=== PATIENT | female | born 1960 | race Caucasian/White ===

== ENCOUNTER 2021-10-31 13:29 | Outpatient (CLI) | payer OTHER, SELFPAY ==
[2021-10-31 14:03] LABS: SARS-CoV-2 Ag Negative (Negative)
[2021-10-31 15:07] LABS: SARS-CoV-2 RNA PCR Negative (Negative)
== END 2021-10-31 13:30 | disposition home or self-care (01) ==
LOC: CHSLAB 13:33
PROVIDERS: PCP Family Medicine; Visit Provider Family Medicine
DX: Z20.822 Contact with and (suspected) exposure to COVID-19 (principal)
CPT/HCPCS: 87426; C9803; U0003; U0005

== ENCOUNTER 2024-04-19 08:36 | Outpatient (RCR) | payer MEDICARE, SELFPAY ==
--- NOTE | 2024-04-19 09:54 | OPREHPOC ---
Outpatient Therapy Plan of Care This is a Multidisciplinary Plan of Care that may contain components documented by all disciplines (PT, OT, and ST.) PT Problem 1 PT Problem #1 Knowledge Deficit PT Goal 1 Goal 1. independent and compliant with HEP Target Visit 5 PT Problem 2 PT Problem #2 Pain PT Goal 1 Goal 1. decrease pain at worst to 2/10 or less in the R shoulder Target Visit 9 PT Problem 3 PT Problem #3 Impaired Range of Motion PT Goal 1 Goal 1. active R shoulder flexion to 165 degrees or better 2. active R shoulder IR to 70 degrees or better 3. all active rom of the R shoulder to be less than 2/10 pain at end range. Target Visit 9 PT Problem 4 PT Problem #4 Impaired Strength PT Goal 1 Goal 1. 4+/5 or better R shoulder strength overall PT Problem 5 PT Problem #5 Impaired Functional Mobil PT Goal 1 Goal 1. quick dash to display less than 20% functional deficits 2. patient to lift 5lb overhead with the R arm x10 reps without more than 2/10 pain 3. patient to return to gardening 4. patient to report being able to get dressed pain free Target Visit 9
--- NOTE | 2024-04-19 09:54 | PTOPEVAL1 ---
Assessment and note entered by JT File, PT Evaluation Information Assessment Status Evaluation Diagnosis R shoulder pain, bursitis Onset 04/06/24 Subjective Information patient reports she injured the R shoulder years ago working a car seat for her grand daughter. she has had several injections in the past. until the most recent time, her last injection was back in 2011. she reports just a few months ago her shoulder pain flared up. she had an injection a couple weeks ago, but has had no relief of her pain and symptoms. she reports she does not recall doing anything that caused her pain to flare up. she reports she has increased pain and symptoms with lifting the R arm, reaching behind her back, and lifting overhead. she reports she has difficulty trying to get to sleep. she reports she did have an xray of the R shoulder but no significant results. she has not had an MRI yet. she reports the pain is located along the front of the shoulder, back of the shoulder, and down the side of the arm along the shoulder. Reported Pain Level Pain Score 2: Self Report Assessment PT Clinical Summary mrs. combs is a 64 yo woman who presents to skilled PT services for evaluation and treatment of R shoulder pain. she can recall no recent, but an acute on chronic flare up of pain in the R shoulder. her symptoms are related to movement/use of the R shoulder, specifically reaching to end rom and lifting/resistance activities. she presents positive for impingement and rotator cuff special testing of the R shoulder. she also has popping/clunking in the shoulder with movement/ testing. she likely has a rotator cuff arthropathy /tendonitis leading to impingement of the R shoulder. continued skilled PT is indicated to improve her objective/functional deficits and progress towards a return to her prior level functional activity performance/quality of life. Plan of Care Interventions Electrical Stimulation,Hot Pack/Cold Pack,Manual Therapy,Neuro Re-education,Patient/Caregiver Educati,Therapeutic Activities,Therapeutic Exercise PT Services Indicated Yes Treatment Frequency and 3x weekly for 9 visits Duration These treatments will address the objective and functional deficits as defined above. The patient will be advanced safely and appropriately in order for the patient to p
--- NOTE | 2024-05-06 14:11 | PTOPREEVAL ---
Assessment and note entered by JT File, PT Evaluation Information Assessment Status Re-evaluation Diagnosis R shoulder pain, bursitis Onset 04/06/24 Subjective Information she reports she continues to have pain in the R shoulder. she reports the pain is not the same intensity all the time, and gets worse with certain movements/directions. she reports rolling over in bed will still have pain, reaching behind her head and back, and performing raises to her side. Reported Pain Level Pain Score 5: Self Report Assessment PT Clinical Summary mrs. combs presents to skilled PT for her 9th skilled PT visit. she presents with continued pain in the R shoulder, especially with reaching behind back, and lifting activities. she displays slight improvements in rom and strength of the R shoulder, but continues to have unmet goals for skilled PT. partial progress is noted towards nearly all goals, but patient would benefit from continued skilled PT to work on continued objective/functional deficits and return to her prior level functional activity performance/ quality of life. Plan of Care Interventions Electrical Stimulation,Hot Pack/Cold Pack,Manual Therapy,Neuro Re-education,Patient/Caregiver Educati,Therapeutic Activities,Therapeutic Exercise,Other Other Interventions dry needling PT Services Indicated Yes Treatment Frequency and continue skilled PT 2x weekly for 6 more visits Duration These treatments will address the objective and functional deficits as defined above. The patient will be advanced safely and appropriately in order for the patient to progress towards his/her prior level of function. Additional exercises will be introduced and as well as a comprehensive home exercise program upon discharge, if needed, ?to ensure carryover of functional gains achieved in the clinic. This treatment plan has been reviewed and agreement upon by the patient.
--- NOTE | 2024-05-31 09:52 | OPREHPOC ---
Outpatient Therapy Plan of Care This is a Multidisciplinary Plan of Care that may contain components documented by all disciplines (PT, OT, and ST.) PT Problem 1 PT Problem #1 Knowledge Deficit PT Goal 1 Goal 1. independent and compliant with HEP Target Visit 5 Progress Met PT Problem 2 PT Problem #2 Pain PT Goal 1 Goal 1. decrease pain at worst to 2/10 or less in the R shoulder Target Visit 15 Progress Not Met Comment continue PT Problem 3 PT Problem #3 Impaired Range of Motion PT Goal 1 Goal 1. active R shoulder flexion to 165 degrees or better. met 2. active R shoulder IR to 70 degrees or better. met 3. all active rom of the R shoulder to be less than 2/10 pain at end range. not met Target Visit 15 Progress Partially Met PT Problem 4 PT Problem #4 Impaired Strength PT Goal 1 Goal 1. 4+/5 or better R shoulder strength overall Target Visit 15 Progress Not Met PT Problem 5 PT Problem #5 Impaired Functional Mobil PT Goal 1 Goal 1. quick dash to display less than 20% functional deficits. not met 2. patient to lift 5lb overhead with the R arm x10 reps without more than 2/10 pain (competes reps, but more pain) 3. patient to return to gardening. not met 4. patient to report being able to get dressed pain free. not met Target Visit 15 Progress Not Met Comment continue
--- NOTE | 2024-05-31 09:55 | PTOPDC ---
Assessment and note entered by JT File, PT Evaluation Information Assessment Status Discharge Diagnosis R shoulder pain, bursitis Onset 04/06/24 Subjective Information patient reports she feels Alright today. she reports she feels better along the front of the R shoulder, but still has the same pain along the back of the shoulder. she reports she has not yet made a follow up with her referring provider. she reports it is getting frustrating. Reported Pain Level Pain Score 3: Self Report Assessment PT Clinical Summary mrs. combs presents to skilled PT services for her 15th skilled therapy visit. she reports continued pain in the posterior R shoulder. she is limited in functional reaching behind her back, and weak still throughout the R shoulder. she has met goal for HEP performance, and partially met goals for ROM. however, all other goals remain un met mostly due to pain. she will DC skilled PT at this time and follow up with MD for further testing and potentially another injection to the R shoulder. Plan of Care PT Services Indicated Yes
== END 2024-05-31 09:00 | disposition home or self-care (01) ==
LOC: CHSPT 08:36
DX: M75.51 Bursitis of right shoulder (principal)
CPT/HCPCS: 97014; 97110; 97140; 97161; G0283

== ENCOUNTER 2024-06-23 09:11 | Outpatient (CLI) | payer MEDICARE, SELFPAY ==
--- NOTE | ~2024-06-23 | MR_ITS ---
EXAMINATION: MR shoulder RT wo con DATE: 06/23/2024 10:07 INDICATION: Right shoulder pain. TECHNIQUE: Magnetic resonance imaging (MRI) of the right shoulder was performed without intravenous c ontrast. Sequences included axial PD-weighted FS FSE, coronal oblique PD-weighted FS FSE and T2-weigh saurav FS FSE, and sagittal oblique T2-weighted FS FSE and T1-weighted FSE. COMPARISON: None. FINDINGS: Coracoacromial arch: The acromion undersurface is curved in morphology (type II). There is a subacromial spur. There is mi ld acromioclavicular joint osteoarthritis. There is moderate subacromial/subdeltoid bursitis. Rotator cuff: There is a full-thickness tear of supraspinatus and infraspinatus tendons measuring 2.0 cm anterior t o posterior by 2.9 cm proximal to distal. Teres minor tendon is normal. There is severe subscapularis tendinopathy. There is no asymmetric fatty atrophy of the rotator cuff muscle bellies. Biceps tendon and glenoid labrum: Biceps tendon is in bicipital groove. There is a partial tear of intra-articular biceps tendon. There is a tearing of superior and posterior superior labrum (SLAP tear). Fluid: There is a small glenohumeral joint effusion. Bones/cartilage: There is cartilage surface irregularity of humeral head and glenoid. IMPRESSION: 1. Full-thickness rotator cuff tear. 2. Mild glenohumeral joint chondrosis. SLAP tear. 3. Partial tear of biceps tendon. 4. Mild acromioclavicular joint osteoarthritis. 5. Small glenohumeral joint effusion and moderate subacromial/subdeltoid bursitis. Reviewed, dictated and finalized at location A. IMPRESSION: 1. Full-thickness rotator cuff tear. 2. Mild glenohumeral joint chondrosis. SLAP tear. 3. Partial tear of biceps tendon. 4. Mild acromioclavicular joint osteoarthritis. 5. Small glenohumeral joint effusion and moderate subacromial/subdeltoid bursit is.
== END 2024-06-23 09:12 ==
LOC: MICIMG 09:12
DX: M19.011 Primary osteoarthritis, right shoulder (principal); M25.411 Effusion, right shoulder; M75.101 Unspecified rotator cuff tear or rupture of right shoulder, not specified as traumatic
CPT/HCPCS: 73221